=== PATIENT | male | born 1980 | race Caucasian/White ===

== ENCOUNTER 2017-12-04 09:43 | Day surgery (SDC) | payer MEDICAID ==
[~2017-12-04] VITALS: Ht 172.7 cm; Wt 103.6 kg
[~2017-12-04 09:43] MED LIST: B IN1TAB2 PO; MULT-1203 PO
[2017-12-04] MEDS ORDERED: LIDOCAINE HCL/PF 2% 5 ML SYRINGE IVP ONE (09:44)
[2017-12-04] MEDS ORDERED: PROPOFOL 1% 20 ML VIAL IVP ONE (09:44)
[2017-12-04] MEDS ORDERED: SODIUM CHLORIDE 0.9% 1,000 ML IV ONE ×2 (09:59→11:00)
== END 2017-12-04 14:15 | disposition home or self-care (01) ==
LOC: SURGERY 09:43
PROVIDERS: ATTEND Internal Medicine Gastroenterology
DX: K63.5 Polyp of colon (principal); K57.32 Diverticulitis of large intestine without perforation or abscess without bleeding; K64.9 Unspecified hemorrhoids; E66.9 Obesity, unspecified; K21.9 Gastro-esophageal reflux disease without esophagitis; I10 Essential (primary) hypertension; Z88.0 Allergy status to penicillin; Z68.34 Body mass index [BMI] 34.0-34.9, adult; Z98.890 Other specified postprocedural states; Z79.899 Other long term (current) drug therapy
CPT/HCPCS: 45380; 88305; C1769; J2704; J3490; J7030